=== PATIENT | male | born 1930 | race Caucasian/White ===

== ENCOUNTER 2018-12-08 07:05 | Emergency (ER) | payer MEDICARE, OTHER ==
[2018-12-08] MEDS ORDERED: Ciprofloxacin 500 MG Tab PO ONE (07:06)
[2018-12-08 07:12] VITALS: BP 151/47
--- NOTE | 2018-12-08 07:30 | EDM.PDOC ---
ED HPI GENERAL MEDICAL PROBLEM - General Chief Complaint: Genitourinary Problem Stated Complaint: "cant pee" Time Seen by Provider: 12/08/18 07:06 Source of Information: Reports: Patient History Limitations: Reports: No Limitations - History of Present Illness INITIAL COMMENTS - FREE TEXT/NARRATIVE: This patient is an 88 year old male that presents to the ER. Patient reports that last week on the he was seen for a kidney stone and had a ct scan done. Patient reports he passed a kidney stone then and for the next 3 days after the , he was fine and urinating without issue. Patient reports then 3 days ago began having blood in his urine. He reports the blood has increased in his urine. He reports then the past day it has been difficult to urinate and the blood has increased. Patient reports the last time he urinated was 6am, with blood, but it was difficult to urinate and he feels like his bladder has not been emptied. He reports an urge to urinate with bladder fullness. Onset Date: 12/02/18 Severity: Moderate Improves with: Reports: None Worsens with: Reports: None Associated Symptoms: Denies: Confusion, Chest Pain, Cough, cough w sputum, Diaphoresis, Fever/Chills, Headaches, Loss of Appetite, Malaise, Nausea/Vomiting , Rash, Seizure, Shortness of Breath, Syncope, Weakness Lower Bladder Pain Score (Numeric/FACES): 5 - Related Data Allergies Allergy/AdvReac Type Severity Reaction Status Date / Time No Known Allergies Allergy Verified 08/30/16 11:20 Home Meds: Home Meds Aspirin [Ecotrin] 81 mg PO DAILY 08/30/16 [History] Losartan Potassium 50 mg PO DAILY 08/30/16 [History] Metoprolol Tartrate 12.5 mg PO BID 08/30/16 [History] Multivitamin [Multivitamins] 1 each PO DAILY 08/30/16 [History] Simvastatin [Zocor] 40 mg PO ASDIRECTED 08/30/16 [History] Past Medical History Cardiovascular History: Reports: High Cholesterol, Hypertension Genitourinary History: Reports: Renal Calculus Social & Family History - Family History Family Medical History: Noncontributory - Tobacco Use Smoking Status *Q: Current Every Day Smoker Years of Tobacco use: 20 Packs/Tins Daily: 0.5 - Caffeine Use Caffeine Use: Reports: Coffee - Recreational Drug Use Recreational Drug Use: No ED ROS GENERAL - Review of Systems Review Of Systems: See Below Constitutional: Reports: No Symptoms. Denies: Fever HEENT: Reports: No Symptoms Respiratory: Reports: No Symptoms Cardiovascular: Reports: No Symptoms Endocrine: Reports: No Symptoms GI/Abdominal: Reports: No Symptoms. Denies: Abdominal Pain, Nausea, Vomiting : Reports: Hematuria, Urgency, Urinary Retention. Denies: Discharge, Dysuria , Flank Pain, Frequency, Incontinence, Pain Musculoskeletal: Reports: No Symptoms Skin: Reports: No Symptoms Neurological: Reports: No Symptoms Psychiatric: Reports: No Symptoms Hematologic/Lymphatic: Reports: No Symptoms Immunologic: Reports: No Symptoms ED EXAM, RENAL/ - Physical Exam Exam: See Below Exam Limited By: No Limitations General Appearance: Alert, WD/WN, No Apparent Distress Eye Exam: Bilateral Eye: Normal Inspection, PERRL Ears: Normal External Exam, Normal Canal, Hearing Grossly Normal, Normal TMs Nose: Normal Inspection, Normal Mucosa, No Blood Throat/Mouth: Normal Inspection, Normal Lips, Normal Teeth, Normal Gums, Normal Oropharynx, Normal Voice, No Airway Compromise Head: Atraumatic, Normocephalic Neck: Normal Inspection, Supple, Non-Tender, Full Range of Motion Respiratory/Chest: No Respiratory Distress, Lungs Clear, Normal Breath Sounds, No Accessory Muscle Use Cardiovascular: Normal Peripheral Pulses, Regular Rate, Rhythm, No Edema, No Gallop, No JVD, No Murmur, No Rub GI/Abdominal: Normal Bowel Sounds, Soft, Non-Tender, No Organomegaly, No Distention, No Mass, Pelvis Stable Back Exam: Normal Inspection, Full Range of Motion. No: CVA Tenderness (L), CVA Tenderness (R) Extremities: Normal Inspection, Normal Range of Motion, Non-Tender, No Pedal Edema, Normal Capillary Refill Neurological: Alert, Oriented, Normal Cognition, Normal Gait, No Motor/Sensory Deficits Psychiatric: Normal Affect, Normal Mood Skin Exam: Warm, Dry, Intact, Normal Color, No Rash Lymphatic: No Adenopathy Course - Vital Signs Last Recorded V/S: Last Vital Signs Temp 96.3 F 12/08/18 07:06 Pulse 56 L 12/08/18 07:06 Resp 20 12/08/18 07:06 BP 151/47 H 12/08/18 07:06 Pulse Ox 99 12/08/18 07:06 - Orders/Labs/Meds Orders: Active Orders 24 hr Category Date Time Status Insert Urinary Catheter [OM.PC] Q24H Care 12/08/18 07:15 Ordered Urinary Catheter Assessment [RC] ASDIRECTED Care 12/08/18 07:14 Active Ciprofloxacin [Take Home: Ciprofloxacin 500 MG, 2 Tab Med 12/08/18 08:50 Once Pack] 1 packet PO ONETIME ONE Labs: Laboratory Tests 12/08/18 12/08/18 12/08/18 Range/Units 07:24 07:24 07:58 WBC 7.3 (5.0-10.0) 10^3/uL RBC 4.06 L (4.50-6.00) 10^6/uL Hgb 13.5 L (14.0-18.0) g/dL Hct 39.4 L (40.0-54.0) % MCV 97.0 H (82.0-94.0) fL MCH 33.3 H (27.0-32.0) pg MCHC 34.3 (33.0-38.0) g/dL RDW Coeff of Aida 12.8 (11.0-15.0) % Plt Count 195 (150-400) 10^3/uL Neut % (Auto) 72.2 (35-85) % Lymph % (Auto) 12.5 (10-55) % [place] % (Auto) 7.1 (0-16) % Eos % (Auto) 7.4 H (0-5) % Baso % (Auto) 0.8 (0-3) % Neut # (Auto) 5.25 (1.80-7.00) 10^3/uL Lymph # (Auto) 0.91 L (1.00-4.80) 10^3/uL [place] # (Auto) 0.52 (0.00-0.80) 10^3/uL Eos # (Auto) 0.54 H (0.00-0.45) 10^3/uL Baso # (Auto) 0.06 10^3/uL Sodium 141 (136-145) mEq/L Potassium 4.6 (3.5-5.0) mEq/L Chloride 106 (98-106) mEq/L Carbon Dioxide 26 (21-32) mmol/L BUN 34 H (7-18) mg/dL Creatinine 1.5 H (0.7-1.3) mg/dL Est Cr Clr Drug Dosing 35.82 mL/min Estimated GFR (MDRD) 44 L (>=60) mL/min Glucose 131 H D (75-99) mg/dL Calcium 8.9 (8.4-10.1) mg/dL Total Bilirubin 0.4 (0.0-1.0) mg/dL AST 23 (15-37) U/L ALT 23 (12-78) U/L Alkaline Phosphatase 89 (46-116) U/L Total Protein 6.8 (6.4-8.2) g/dL Albumin 3.6 (3.4-5.0) g/dL Urine Color Brown (YELLOW) Urine Appearance Cloudy (CLEAR) Urine pH 5.0 (4.5-8.0) Ur Specific [place] 1.025 H (1.003-1.020) Urine Protein 100 H (NEGATIVE) mg/dL Urine Glucose (UA) Negative (NEGATIVE) mg/dL Urine Ketones Negative (NEGATIVE) mg/dL Urine Occult Blood Large H (NEGATIVE) Urine Nitrite Negative (NEGATIVE) Urine Bilirubin Negative (NEGATIVE) Urine Urobilinogen 0.2 (0.2-1.0) EU/dL Ur Leukocyte Esterase Trace H (NEGATIVE) Urine RBC Packed H (0-5) /HPF Urine WBC 0-5 (0-5) /HPF - Re-Assessments/Exams Free Text/Narrative Re-Assessment/Exam: 12/08/18 08:51 Called and spoe to urologist semiconductor packages leak tester at [facility]. He reports to leave figueredo in place, give abx. Have patient see urology that comes to [place] this month, see PCP in a couple days for f/u. He reports will take some time, but blood should clear up. Will discharge patient. Departure - Departure Time of Disposition: 08:48 Disposition: Home, Self-Care 01 Condition: Fair Clinical Impression: Hematuria syndrome, Retention of urine - Discharge Information *PRESCRIPTION DRUG MONITORING PROGRAM REVIEWED*: Not Applicable *COPY OF PRESCRIPTION DRUG MONITORING REPORT IN PATIENT JORGE ALBERTO: Not Applicable Instructions: Indwelling Urinary Catheter Care, Adult, Acute Urinary Retention , Male Referrals: Richy Hoffmann MD [Primary Care Provider] - Forms: ED Department Discharge Additional Instructions: See Dr. Hoffmann in 2 days for recheck See urologist that comes to [place] Increase fluids Leave figueredo in place, be sure to drain the urine from the bag STOP ASPIRIN Cipro 500mg 1 pill twice a day for 7 days #12 no refill: Given two pills to take home here - My Orders Last 24 Hours: My Active Orders 12/08/18 07:14 Urinary Catheter Assessment [RC] ASDIRECTED 12/08/18 07:15 Insert Urinary Catheter [OM.PC] Q24H 12/08/18 08:50 Ciprofloxacin [Take Home: Ciprofloxacin 500 MG, 2 Tab Pack] 1 packet PO ONETIME ONE - Assessment/Plan Last 24 Hours: My Active Orders 12/08/18 07:14 Urinary Catheter Assessment [RC] ASDIRECTED 12/08/18 07:15 Insert Urinary Catheter [OM.PC] Q24H 12/08/18 08:50 Ciprofloxacin [Take Home: Ciprofloxacin 500 MG, 2 Tab Pack] 1 packet PO ONETIME ONE Plan: PLEASE SEE RN NOTE FOR PFSH.
[2018-12-08] MEDS ORDERED: Take Home: Ciprofloxacin 500 MG Tab, 2 Tab Pack PO ONE (08:50)
== END 2018-12-08 09:15 | disposition home or self-care (01) ==
LOC: CC.ED 07:05
DX: R33.9 Retention of urine, unspecified (principal); R31.9 Hematuria, unspecified; I10 Essential (primary) hypertension; F17.210 Nicotine dependence, cigarettes, uncomplicated; Z79.82 Long term (current) use of aspirin; Z79.899 Other long term (current) drug therapy
CPT/HCPCS: 36415; 51702; 80053; 81001; 85025; 99283; A9270

== ENCOUNTER 2020-11-14 15:39 | Observation (INO) | payer MEDICARE, OTHER ==
[2020-11-14] MEDS ORDERED: Sodium Chloride 0.9% 10 ML Syringe FLUSH PRN (16:30)
[2020-11-14] MEDS ORDERED: Acetaminophen 325 MG Tab PO PRN (16:30)
[2020-11-14 17:08] LABS: CHLORIDE,CL 106 mEq/L (98-106); SODIUM,NA 144 mEq/L (136-145)
[2020-11-14] MEDS ORDERED: amLODIPine 10 MG Tab PO SCH ×2 (17:15→18:00)
[2020-11-14] MEDS: amLODIPine 10 MG Tab PO SCH (18:18)
[2020-11-14] MEDS: LOSARTAN POTASSIUM 50 MG PO SCH (18:38)
[2020-11-15] MEDS: amLODIPine 10 MG Tab PO SCH (07:33)
[2020-11-15] MEDS: LOSARTAN POTASSIUM 50 MG PO SCH (07:33)
[2020-11-15 07:35] VITALS: BP 165/46
[2020-11-15] MEDS ORDERED: Enoxaparin 40 MG/0.4 ML Syringe SUBCUT SCH (08:00)
[2020-11-15] MEDS ORDERED: Aspirin 81 MG Tab.EC PO SCH (08:00)
[2020-11-15 09:27] VITALS: PULSE 33
--- NOTE | 2020-11-15 10:12 | PCM.DCSUM1 ---
Discharge Summary - Hospital Course HPI Initial Comments: Don is an 89 yo male who was admitted to the hospital yesterday from the clinic by Dr. Hoffmann. Patient had quite elevated blood pressure and left lower leg pain. Patient had no known history of hypertension. Patient has known peripheral vascular disease. Through out the night patient did become bradycardic in the 30's. Upon ambulation he has been lightheaded. Diagnosis: Stroke: No - Discharge Data Discharge Date: 11/15/20 Discharge Disposition: DC/Tfer to Acute Hospital 02 Condition: Good - Referral to Home Health Primary Care Physician: Richy Hoffmann MD - Discharge Diagnosis/Problem(s) (1) Symptomatic bradycardia SNOMED Code(s): 93079903, 344030137 ICD Code: R00.1 - BRADYCARDIA, UNSPECIFIED Status: Acute Current Visit: Yes (2) Hypertensive urgency SNOMED Code(s): 142111839 ICD Code: I16.0 - HYPERTENSIVE URGENCY Status: Acute Current Visit: Yes - Patient Instructions Diet: NPO - Discharge Plan *PRESCRIPTION DRUG MONITORING PROGRAM REVIEWED*: No *COPY OF PRESCRIPTION DRUG MONITORING REPORT IN PATIENT JORGE ALBERTO: No Home Medications: Home Meds Aspirin [Ecotrin EC] 81 mg PO DAILY 08/30/16 [History] Losartan Potassium 25 mg PO DAILY 08/30/16 [History] Multivitamin [Multivitamins] 1 each PO DAILY 08/30/16 [History] Simvastatin [Zocor] 40 mg PO DAILY 08/30/16 [History] - Discharge Summary/Plan Comment DC Time >30 min.: Yes Discharge Summary/Plan Comment: Dr. Hoffmann did evaluate Don this morning. D/t symptomatic bradycardia we p roceeded to consult with Dr. Martinez, segmental wall installer. Dr. Martinez did feel evaluation for pacemaker was warranted. Dr. Hickman, hospitalist, at [facility] in [place] kindly accepted transfer. Don will be discharged and transferred via BLS transfer for cardiac monitoring to [facility] in [place]. Patient's blood pressure has been stable. At rest patient is asymptomatic. Patient did have breakfast this morning. Patient is to be NPO now. Risks and benefits of transfer discussed with Don. Risks of transfer included MVA, worsening bradycardia, further arrhythmia or . Benefits of transfer included cardiac evaluation and possible intervention. Risks of non- transfer included worsening cardiac arrhythmia's, , no specialty intervention. Benefits of non-transfer included staying close to home and familiar environment. Patient verbalized understanding and feels the benefits outweigh the risks. - General Info Date of Service: 11/15/20 Subjective Update: Don states he is feeling better this morning. States he only gets lightheaded when getting up but hasn't had any falls. States the discomfort in his left leg is a lot better as well today. Admits he has been up to the bathroom and did walk the halls this morning. Patient was given 5mg of Norvasc and 25mg of Losartan yesterday. Functional Status: Reports: Tolerating Diet - Review of Systems General: Reports: No Symptoms HEENT: Reports: No Symptoms Pulmonary: Reports: No Symptoms Cardiovascular: Reports: Lightheadedness. Denies: Chest Pain, Palpitations, Dyspnea on Exertion Gastrointestinal: Reports: No Symptoms Genitourinary: Reports: No Symptoms Musculoskeletal: Reports: No Symptoms. Denies: Leg Pain Skin: Reports: No Symptoms Neurological: Reports: No Symptoms - Patient Data Vitals - Most Recent: Last Vital Signs Temp 97.7 F 11/15/20 08:00 Pulse 33 L 11/15/20 08:00 Resp 16 11/15/20 08:00 BP 165/46 H 11/15/20 08:00 Pulse Ox 94 L 11/15/20 08:00 Weight - Most Recent: 150 lb Lab Results - Last 24 hrs: Laboratory Results - last 24 hr 11/14/20 11/14/20 11/14/20 Range/Units 16:45 16:45 20:29 WBC 7.6 (5.0-10.0) 10^3/uL RBC 4.01 L (4.50-6.00) 10^6/uL Hgb 13.0 L (14.0-18.0) g/dL Hct 38.6 L (40.0-54.0) % MCV 96.3 H (82.0-94.0) fL MCH 32.4 H (27.0-32.0) pg MCHC 33.7 (33.0-38.0) g/dL RDW Coeff of Aida 13.0 (11.0-15.0) % Plt Count 159 (150-400) 10^3/uL Neut % (Auto) 71.4 (35-85) % Lymph % (Auto) 11.3 (10-55) % [place] % (Auto) 10.4 (0-16) % Eos % (Auto) 6.4 H (0-5) % Baso % (Auto) 0.5 (0-3) % Neut # (Auto) 5.44 (1.80-7.00) 10^3/uL Lymph # (Auto) 0.86 L (1.00-4.80) 10^3/uL [place] # (Auto) 0.79 (0.00-0.80) 10^3/uL Eos # (Auto) 0.49 H (0.00-0.45) 10^3/uL Baso # (Auto) 0.04 10^3/uL Sodium 144 (136-145) mEq/L Potassium 4.2 (3.5-5.0) mEq/L Chloride 106 (98-106) mEq/L Carbon Dioxide 26 (21-32) mmol/L BUN 38 H D (7-18) mg/dL Creatinine 1.6 H (0.7-1.3) mg/dL Est Cr Clr Drug Dosing 30.12 mL/min Estimated GFR (MDRD) 41 L (>=60) mL/min Glucose 102 H (75-99) mg/dL Calcium 9.3 (8.4-10.1) mg/dL Total Bilirubin 0.6 (0.0-1.0) mg/dL AST 32 (15-37) U/L ALT 45 (12-78) U/L Alkaline Phosphatase 104 (46-116) U/L Troponin I < 0.017 (0.00-0.06) ng/mL Total Protein 7.3 (6.4-8.2) g/dL Albumin 3.7 (3.4-5.0) g/dL Urine Color Yellow (YELLOW) Urine Appearance Slightly cloudy (CLEAR) Urine pH 5.5 (4.5-8.0) Ur Specific [place] >= 1.030 H (1.003-1.020) Urine Protein >=300 H (NEGATIVE) mg/dL Urine Glucose (UA) Negative (NEGATIVE) mg/dL Urine Ketones Negative (NEGATIVE) mg/dL Urine Occult Blood Trace-intact H (NEGATIVE) Urine Nitrite Negative (NEGATIVE) Urine Bilirubin Negative (NEGATIVE) Urine Urobilinogen 0.2 (0.2-1.0) EU/dL Ur Leukocyte Esterase Negative (NEGATIVE) U Hyaline Cast (Auto) Rare (NOT SEEN) /LPF Urine RBC 0-5 (0-5) /HPF Urine WBC Not seen (0-5) /HPF Med Orders - Current: Current Medications Acetaminophen (Acetaminophen 325 Mg Tab) 650 mg PO Q4H PRN PRN Reason: Pain (Mild 1-3)/fever Last Admin: 11/14/20 21:34 Dose: 650 mg Documented by: Amlodipine Besylate (Amlodipine 10 Mg Tab) 5 mg PO DAILY [facility] Last Admin: 11/15/20 07:33 Dose: 5 mg Documented by: Aspirin (Aspirin 81 Mg Tab.Ec) 81 mg PO DAILY [facility] Last Admin: 11/15/20 07:33 Dose: 81 mg Documented by: Enoxaparin Sodium (Enoxaparin 40 Mg/0.4 Ml Syringe) 40 mg SUBCUT DAILY [facility] Last Admin: 11/15/20 07:32 Dose: 40 mg Documented by: Losartan Potassium 50 Mg Tablet Pt Own 0 mg PO DAILY [facility] Last Admin: 11/15/20 07:33 Dose: 25 mg Documented by: Simvastatin (Simvastatin 40 Mg Tab Pt Own) 40 mg PO BEDTIME [facility] Sodium Chloride (Sodium Chloride 0.9% 10 Ml Syringe) 10 ml FLUSH ASDIRECTED PRN PRN Reason: Keep Vein Open Discontinued Medications Amlodipine Besylate (Amlodipine 10 Mg Tab) 5 mg PO DAILY [facility] Last Admin: 11/14/20 19:29 Dose: Not Given Documented by: Amlodipine Besylate (Amlodipine 10 Mg Tab) 5 mg PO DAILY [facility] - Exam General: Reports: Alert, Oriented, Cooperative, No Acute Distress Lungs: Reports: Clear to Auscultation, Normal Respiratory Effort Cardiovascular: Reports: Regular Rhythm, No Murmurs, Bradycardia GI/Abdominal Exam: Normal Bowel Sounds, Soft, No Organomegaly, No Distention, No Mass Extremities: Normal Inspection, No Pedal Edema. No: Leg Pain Skin: Reports: Warm, Dry, Intact Neurological: Reports: No New Focal Deficit Psy/Mental Status: Reports: Alert, Normal Affect, Normal Mood
[2020-11-15] MEDS ORDERED: SIMVASTATIN 40 MG PO SCH (20:00)
== END 2020-11-15 10:39 ==
LOC: UNDOADMOB 15:39 → CC.MS 15:39
PROVIDERS: ADMIT Family Medicine; ATTEND Family Medicine
DX: I16.0 Hypertensive urgency (principal); R00.1 Bradycardia, unspecified; E78.5 Hyperlipidemia, unspecified; I10 Essential (primary) hypertension; I73.9 Peripheral vascular disease, unspecified; Z79.82 Long term (current) use of aspirin; Z87.891 Personal history of nicotine dependence
CPT/HCPCS: 36415; 70450; 71046; 80053; 81001; 84484; 85025; 93005; 96372; A9270-GY; G0378; J1650

== ENCOUNTER 2020-12-28 12:11 | Inpatient (IN) | payer MEDICARE, OTHER ==
[2020-12-28] MEDS ORDERED: Polyethylene Glycol 3350 Powder 17 GM Packet PO PRN (15:09)
[2020-12-28] MEDS ORDERED: Acetaminophen 325 MG Tab PO PRN (15:09)
[2020-12-28] MEDS ORDERED: Melatonin 3 MG Tab PO PRN (15:09)
[2020-12-28] MEDS ORDERED: Ondansetron 4 MG Tab.DIS PO PRN (15:09)
[2020-12-28] MEDS ORDERED: Acetaminophen 500 MG Tab PO PRN (15:19)
[2020-12-28] MEDS: ceFAZolin 1 GM Vial IVPUSH SCH (16:59)
[2020-12-29] MEDS: ceFAZolin 1 GM Vial IVPUSH SCH ×4 (00:14→23:47)
[2020-12-29] MEDS: Multivitamin Tab PO SCH (07:50)
[2020-12-29] MEDS: Aspirin 81 MG Tab.EC PO SCH (07:50)
[2020-12-29] MEDS: Simvastatin 40 MG Tab PO SCH (07:50)
[2020-12-29] MEDS: Losartan 100 MG Tab PO SCH (07:51)
[2020-12-29] MEDS: amLODIPine 2.5 MG Tab PO SCH (07:52)
[2020-12-29] MEDS: Nicotine 7 MG/24 Hr Patch TRDERM SCH (07:54)
[2020-12-29] MEDS ORDERED: ceFAZolin 1 GM Vial ONE (08:06)
--- NOTE | 2020-12-29 13:12 | HP ---
CHIEF COMPLAINT: Swing bed admission. 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 He had been doing fine until he started noticing drainage. He ultimately had to have the pacemaker removed at [facility] and reinserted in his right chest. He does have an abscess and a wound in his left chest and is requiring VAC treatment with long-term antibiotics at this point. He was sent for swing bed for such. PAST MEDICAL HISTORY: Includes a history of hypertension, hyperlipidemia, and a recent heart block requiring pacemaker placement. He has a known history of peripheral vascular disease and continues to smoke. He has elected not to have surgical treatment of his claudication and seems to be getting by adequately at this point. PAST SURGICAL HISTORY: Includes a pacer placement. ALLERGIES: NONE. CURRENT MEDICATIONS: Norvasc 5 mg daily, aspirin 81 mg daily, Ancef 2 g every 8 hours IV, Cozaar 100 mg daily, melatonin 3 mg at bedtime, minocycline 100 mg b.i.d., multivitamin 1 daily, Zocor 40 mg daily. SOCIAL HISTORY: The patient is . His suffers from advanced dementia and has just been placed in a skilled nursing. He continues to be a smoker. REVIEW OF SYSTEMS: Unremarkable. PHYSICAL EXAMINATION: GENERAL: The patient is pleasant, alert, and cooperative. He appears in no distress. He is very jovial and easy to speak with. HEENT: Grossly benign. NECK: Supple. No adenopathy. His veins are flat. LUNGS: Lung sounds appear to be clear. CARDIAC: Cardiac tones are regular at this time. CHEST: Pacer in the right upper chest is bandaged, but there is according to staff no erythema. He has a VAC placement in his left upper chest and a central line placed in mid sternum region. ABDOMEN: Soft and nontender. Bowel sounds are noted throughout. EXTREMITIES: No peripheral edema seen. Pulses are diminished in each foot, but palpable. SKIN: No skin lesions are seen. ASSESSMENT: 1. SWING BED PLACEMENT. 2. INFECTED PACER SITE WITH NEED FOR LONG-TERM ANTIBIOTICS AND VAC TREATMENT. 3. HYPERTENSION. 4. HYPERLIPIDEMIA. 5. NICOTINE ADDICTION. 6. PERIPHERAL VASCULAR DISEASE. PLAN: Orders have been put in by Sherine. We will put him on DVT prophylaxis. Otherwise, orders are agreed with. PARIS/DARWIN /[id number]
[2020-12-29] MEDS: Enoxaparin 40 MG/0.4 ML Syringe SUBCUT SCH (19:17)
[2020-12-30] MEDS: ceFAZolin 1 GM Vial IVPUSH SCH ×3 (07:27→23:55)
[2020-12-30] MEDS: Aspirin 81 MG Tab.EC PO SCH (07:28)
[2020-12-30] MEDS: amLODIPine 2.5 MG Tab PO SCH (07:28)
[2020-12-30] MEDS: Simvastatin 40 MG Tab PO SCH (07:28)
[2020-12-30] MEDS: Multivitamin Tab PO SCH (07:29)
[2020-12-30] MEDS: Losartan 100 MG Tab PO SCH (07:29)
[2020-12-30] MEDS: Nicotine 7 MG/24 Hr Patch TRDERM SCH (07:51)
[2020-12-30] MEDS: Enoxaparin 40 MG/0.4 ML Syringe SUBCUT SCH (19:42)
[2020-12-31] MEDS: Multivitamin Tab PO SCH (08:01)
[2020-12-31] MEDS: amLODIPine 2.5 MG Tab PO SCH (08:01)
[2020-12-31] MEDS: Aspirin 81 MG Tab.EC PO SCH (08:02)
[2020-12-31] MEDS: Losartan 100 MG Tab PO SCH (08:04)
[2020-12-31] MEDS: Simvastatin 40 MG Tab PO SCH (08:05)
[2020-12-31] MEDS: ceFAZolin 1 GM Vial IVPUSH SCH ×2 (08:05→16:09)
[2020-12-31] MEDS: Enoxaparin 40 MG/0.4 ML Syringe SUBCUT SCH (19:54)
[2021-01-01] MEDS: ceFAZolin 1 GM Vial IVPUSH SCH ×3 (00:01→16:46)
[2021-01-01] MEDS: Aspirin 81 MG Tab.EC PO SCH (07:34)
[2021-01-01] MEDS: Losartan 100 MG Tab PO SCH (07:35)
[2021-01-01] MEDS: Multivitamin Tab PO SCH (07:35)
[2021-01-01] MEDS: amLODIPine 2.5 MG Tab PO SCH (07:36)
[2021-01-01] MEDS: Simvastatin 40 MG Tab PO SCH (07:37)
[2021-01-01] MEDS: Enoxaparin 40 MG/0.4 ML Syringe SUBCUT SCH (19:59)
[2021-01-02] MEDS: ceFAZolin 1 GM Vial IVPUSH SCH ×3 (00:13→16:16)
[2021-01-02] MEDS: Aspirin 81 MG Tab.EC PO SCH (07:59)
[2021-01-02] MEDS: Simvastatin 40 MG Tab PO SCH (07:59)
[2021-01-02] MEDS: Multivitamin Tab PO SCH (07:59)
[2021-01-02] MEDS: amLODIPine 2.5 MG Tab PO SCH (07:59)
[2021-01-02] MEDS: Losartan 100 MG Tab PO SCH (07:59)
[2021-01-02] MEDS: Enoxaparin 40 MG/0.4 ML Syringe SUBCUT SCH (19:51)
[2021-01-03] MEDS: ceFAZolin 1 GM Vial IVPUSH SCH ×3 (00:03→16:35)
[2021-01-03] MEDS: amLODIPine 2.5 MG Tab PO SCH (07:58)
[2021-01-03] MEDS: Simvastatin 40 MG Tab PO SCH (07:59)
[2021-01-03] MEDS: Multivitamin Tab PO SCH (07:59)
[2021-01-03] MEDS: Losartan 100 MG Tab PO SCH (07:59)
[2021-01-03] MEDS: Aspirin 81 MG Tab.EC PO SCH (07:59)
[2021-01-03] MEDS: Enoxaparin 40 MG/0.4 ML Syringe SUBCUT SCH (19:21)
[2021-01-04] MEDS: ceFAZolin 1 GM Vial IVPUSH SCH ×3 (00:11→16:19)
[2021-01-04] MEDS ORDERED: amLODIPine 10 MG Tab PO SCH ×2 (08:00→20:00)
[2021-01-04] MEDS ORDERED: amLODIPine 2.5 MG Tab PO SCH (08:00)
[2021-01-04] MEDS: Simvastatin 40 MG Tab PO SCH (08:06)
[2021-01-04] MEDS: Losartan 100 MG Tab PO SCH (08:06)
[2021-01-04] MEDS: Multivitamin Tab PO SCH (08:07)
[2021-01-04] MEDS: Aspirin 81 MG Tab.EC PO SCH (08:07)
[2021-01-04] MEDS: Enoxaparin 40 MG/0.4 ML Syringe SUBCUT SCH (20:31)
[2021-01-04] MEDS: amLODIPine 10 MG Tab PO SCH (20:31)
[2021-01-05] MEDS: ceFAZolin 1 GM Vial IVPUSH SCH ×4 (00:04→23:53)
[2021-01-05] MEDS: Simvastatin 40 MG Tab PO SCH (07:20)
[2021-01-05] MEDS: Multivitamin Tab PO SCH (07:21)
[2021-01-05] MEDS: Aspirin 81 MG Tab.EC PO SCH (07:21)
[2021-01-05] MEDS: Losartan 100 MG Tab PO SCH (07:21)
[2021-01-05] MEDS: amLODIPine 10 MG Tab PO SCH (19:39)
[2021-01-05] MEDS: Enoxaparin 40 MG/0.4 ML Syringe SUBCUT SCH (19:39)
[2021-01-06] MEDS: Multivitamin Tab PO SCH (07:58)
[2021-01-06] MEDS: Aspirin 81 MG Tab.EC PO SCH (07:58)
[2021-01-06] MEDS: Simvastatin 40 MG Tab PO SCH (07:58)
[2021-01-06] MEDS: Losartan 100 MG Tab PO SCH (07:58)
[2021-01-06] MEDS: ceFAZolin 1 GM Vial IVPUSH SCH ×2 (08:00→16:21)
[2021-01-06] MEDS: amLODIPine 10 MG Tab PO SCH (19:18)
[2021-01-06] MEDS: Enoxaparin 40 MG/0.4 ML Syringe SUBCUT SCH (19:18)
[2021-01-07] MEDS: ceFAZolin 1 GM Vial IVPUSH SCH ×3 (00:08→15:58)
[2021-01-07] MEDS: Simvastatin 40 MG Tab PO SCH (07:34)
[2021-01-07] MEDS: Aspirin 81 MG Tab.EC PO SCH (07:34)
[2021-01-07] MEDS: Multivitamin Tab PO SCH (07:34)
[2021-01-07] MEDS: Losartan 100 MG Tab PO SCH (07:35)
[2021-01-07] MEDS: Enoxaparin 40 MG/0.4 ML Syringe SUBCUT SCH (19:27)
[2021-01-07] MEDS: amLODIPine 10 MG Tab PO SCH (19:28)
[2021-01-08] MEDS: ceFAZolin 1 GM Vial IVPUSH SCH ×4 (08:03→23:56)
[2021-01-08] MEDS: Losartan 100 MG Tab PO SCH (08:05)
[2021-01-08] MEDS: Multivitamin Tab PO SCH (08:05)
[2021-01-08] MEDS: Aspirin 81 MG Tab.EC PO SCH (08:05)
[2021-01-08] MEDS: Simvastatin 40 MG Tab PO SCH (08:05)
[2021-01-08] MEDS: amLODIPine 10 MG Tab PO SCH (19:31)
[2021-01-08] MEDS: Enoxaparin 40 MG/0.4 ML Syringe SUBCUT SCH (19:31)
[2021-01-09] MEDS: ceFAZolin 1 GM Vial IVPUSH SCH ×3 (07:39→23:47)
[2021-01-09] MEDS: Aspirin 81 MG Tab.EC PO SCH (07:40)
[2021-01-09] MEDS: Losartan 100 MG Tab PO SCH (07:40)
[2021-01-09] MEDS: Multivitamin Tab PO SCH (07:41)
[2021-01-09] MEDS: Simvastatin 40 MG Tab PO SCH (07:41)
[2021-01-09] MEDS: Enoxaparin 40 MG/0.4 ML Syringe SUBCUT SCH (19:25)
[2021-01-09] MEDS: amLODIPine 10 MG Tab PO SCH (19:25)
[2021-01-10] MEDS: ceFAZolin 1 GM Vial IVPUSH SCH ×2 (07:51→16:39)
[2021-01-10] MEDS: Losartan 100 MG Tab PO SCH (07:52)
[2021-01-10] MEDS: Simvastatin 40 MG Tab PO SCH (07:52)
[2021-01-10] MEDS: Aspirin 81 MG Tab.EC PO SCH (07:52)
[2021-01-10] MEDS: Multivitamin Tab PO SCH (07:52)
[2021-01-10] MEDS: Enoxaparin 40 MG/0.4 ML Syringe SUBCUT SCH (20:00)
[2021-01-10] MEDS: amLODIPine 10 MG Tab PO SCH (20:00)
[2021-01-11] MEDS: ceFAZolin 1 GM Vial IVPUSH SCH ×4 (00:01→23:48)
[2021-01-11] MEDS: Losartan 100 MG Tab PO SCH (07:26)
[2021-01-11] MEDS: Simvastatin 40 MG Tab PO SCH (07:26)
[2021-01-11] MEDS: Multivitamin Tab PO SCH (07:27)
[2021-01-11] MEDS: Aspirin 81 MG Tab.EC PO SCH (07:27)
[2021-01-11] MEDS: Bacitracin Oint 28.35 GM Tube TOP SCH (19:55)
[2021-01-11] MEDS: Enoxaparin 40 MG/0.4 ML Syringe SUBCUT SCH (19:56)
[2021-01-11] MEDS: amLODIPine 10 MG Tab PO SCH (19:56)
[2021-01-12] MEDS: Losartan 100 MG Tab PO SCH (07:36)
[2021-01-12] MEDS: Multivitamin Tab PO SCH (07:36)
[2021-01-12] MEDS: Aspirin 81 MG Tab.EC PO SCH (07:37)
[2021-01-12] MEDS: Simvastatin 40 MG Tab PO SCH (07:37)
[2021-01-12] MEDS: ceFAZolin 1 GM Vial IVPUSH SCH ×2 (07:40→15:43)
[2021-01-12] MEDS: Bacitracin Oint 28.35 GM Tube TOP SCH ×2 (07:50→19:23)
--- NOTE | 2021-01-12 13:47 | PCM.SN.2 ---
- Free Text/Narrative Note: Don is an 89 yo male who has been in swing bed status s/p pacemaker infection site. New one was placed on the right upper chest with old in left upper chest. He is currently on IV Ancef 2 gm q8hrs. Patient is due for 14 day recertification. Continue IV antibiotics through the 01/19/2021. Wound vac removed yesterday.
[2021-01-12] MEDS: amLODIPine 10 MG Tab PO SCH (19:22)
[2021-01-12] MEDS: Enoxaparin 40 MG/0.4 ML Syringe SUBCUT SCH (19:23)
[2021-01-13] MEDS: ceFAZolin 1 GM Vial IVPUSH SCH ×4 (00:06→23:46)
[2021-01-13] MEDS: Multivitamin Tab PO SCH (07:26)
[2021-01-13] MEDS: Losartan 100 MG Tab PO SCH (07:26)
[2021-01-13] MEDS: Simvastatin 40 MG Tab PO SCH (07:26)
[2021-01-13] MEDS: Aspirin 81 MG Tab.EC PO SCH (08:00)
[2021-01-13] MEDS: Bacitracin Oint 28.35 GM Tube TOP SCH ×2 (08:00→19:30)
[2021-01-13] MEDS: Enoxaparin 40 MG/0.4 ML Syringe SUBCUT SCH (19:28)
[2021-01-13] MEDS: amLODIPine 10 MG Tab PO SCH (19:29)
[2021-01-14] MEDS: ceFAZolin 1 GM Vial IVPUSH SCH ×3 (07:45→23:25)
[2021-01-14] MEDS: Bacitracin Oint 28.35 GM Tube TOP SCH ×2 (07:46→19:47)
[2021-01-14] MEDS: Simvastatin 40 MG Tab PO SCH (07:46)
[2021-01-14] MEDS: Multivitamin Tab PO SCH (07:46)
[2021-01-14] MEDS: Aspirin 81 MG Tab.EC PO SCH (07:46)
[2021-01-14] MEDS: Losartan 100 MG Tab PO SCH (07:47)
[2021-01-14] MEDS: Enoxaparin 40 MG/0.4 ML Syringe SUBCUT SCH (19:48)
[2021-01-14] MEDS: amLODIPine 10 MG Tab PO SCH (19:48)
[2021-01-15] MEDS: ceFAZolin 1 GM Vial IVPUSH SCH ×2 (07:38→15:25)
[2021-01-15] MEDS: Multivitamin Tab PO SCH (07:38)
[2021-01-15] MEDS: Simvastatin 40 MG Tab PO SCH (07:38)
[2021-01-15] MEDS: Bacitracin Oint 28.35 GM Tube TOP SCH ×2 (07:38→19:41)
[2021-01-15] MEDS: Aspirin 81 MG Tab.EC PO SCH (07:38)
[2021-01-15] MEDS: Losartan 100 MG Tab PO SCH (07:39)
[2021-01-15] MEDS: Enoxaparin 40 MG/0.4 ML Syringe SUBCUT SCH (19:41)
[2021-01-15] MEDS: amLODIPine 10 MG Tab PO SCH (19:41)
[2021-01-16] MEDS: ceFAZolin 1 GM Vial IVPUSH SCH ×3 (00:59→16:49)
[2021-01-16] MEDS: Bacitracin Oint 28.35 GM Tube TOP SCH ×2 (08:06→20:01)
[2021-01-16] MEDS: Multivitamin Tab PO SCH (08:07)
[2021-01-16] MEDS: Losartan 100 MG Tab PO SCH (08:07)
[2021-01-16] MEDS: Aspirin 81 MG Tab.EC PO SCH (08:07)
[2021-01-16] MEDS: Simvastatin 40 MG Tab PO SCH (08:07)
[2021-01-16] MEDS: amLODIPine 10 MG Tab PO SCH (20:00)
[2021-01-16] MEDS: Enoxaparin 40 MG/0.4 ML Syringe SUBCUT SCH (20:00)
[2021-01-17] MEDS: ceFAZolin 1 GM Vial IVPUSH SCH ×4 (00:25→23:56)
[2021-01-17] MEDS: Losartan 100 MG Tab PO SCH (07:49)
[2021-01-17] MEDS: Multivitamin Tab PO SCH (07:49)
[2021-01-17] MEDS: Aspirin 81 MG Tab.EC PO SCH (07:49)
[2021-01-17] MEDS: Bacitracin Oint 28.35 GM Tube TOP SCH ×2 (07:49→19:18)
[2021-01-17] MEDS: Simvastatin 40 MG Tab PO SCH (07:49)
[2021-01-17] MEDS: amLODIPine 10 MG Tab PO SCH (19:19)
[2021-01-17] MEDS: Enoxaparin 40 MG/0.4 ML Syringe SUBCUT SCH (19:19)
[2021-01-18] MEDS: ceFAZolin 1 GM Vial IVPUSH SCH ×2 (07:26→20:39)
[2021-01-18] MEDS: Simvastatin 40 MG Tab PO SCH (07:26)
[2021-01-18] MEDS: Losartan 100 MG Tab PO SCH (07:26)
[2021-01-18] MEDS: Aspirin 81 MG Tab.EC PO SCH (07:26)
[2021-01-18] MEDS: Multivitamin Tab PO SCH (07:26)
[2021-01-18] MEDS: Bacitracin Oint 28.35 GM Tube TOP SCH ×2 (07:26→19:53)
[2021-01-18] MEDS: amLODIPine 10 MG Tab PO SCH (19:54)
[2021-01-18] MEDS: Enoxaparin 40 MG/0.4 ML Syringe SUBCUT SCH (19:54)
[2021-01-19] MEDS: Losartan 100 MG Tab PO SCH (07:45)
[2021-01-19] MEDS: Aspirin 81 MG Tab.EC PO SCH (07:45)
[2021-01-19] MEDS: Simvastatin 40 MG Tab PO SCH (07:45)
[2021-01-19] MEDS: Multivitamin Tab PO SCH (07:45)
[2021-01-19] MEDS: Bacitracin Oint 28.35 GM Tube TOP SCH (07:46)
[2021-01-19 07:47] VITALS: BP 131/83
[2021-01-19 07:50] VITALS: PULSE 96
--- NOTE | 2021-01-19 11:01 | DISCH ---
ADMISSION DIAGNOSES: 1. Infected pacer site with need for back treatment. 2. Hypertension. 3. Hyperlipidemia. 4. Nicotine addiction. 5. Peripheral vascular disease. DISCHARGE DIAGNOSIS: 1. INFECTED PACER SITE WITH NEED FOR BACK TREATMENT. 2. HYPERTENSION. 3. HYPERLIPIDEMIA. 4. NICOTINE ADDICTION. 5. PERIPHERAL VASCULAR DISEASE. HISTORY: The patient is an elderly gentleman who had a previous pacemaker insertion in his left upper chest for a complete heart block. He started having erythema and drainage from it and required removal and re-insertion on his right side. He developed an abscess and required antibiotics and VAC treatment. He came to swing bed for such. SWING BED COURSE: The patient was fine while here. He never spiked any temps. His vitals were stable. He was essentially asymptomatic and clinically did wonderful. He had not had any issues with the VAC and there was no further abscess or open sores. He has been on DVT prophylaxis during his stay, has been up and ambulating, eating a regular diet, and having no complaints of pain. He will be discharged home with instructions for followup in 1 week in my office. He has followup with Cardiology in February. COMPLICATIONS: During his stay were none. CONSULTATIONS: None. DISPOSITION: Discharged home via self-care. AYAKA /[id number]
== END 2021-01-19 11:10 | disposition home or self-care (01) | DRG 950 ==
LOC: CC.MS 14:37
PROVIDERS: ADMIT Physician Assistant Medical; ATTEND Family Medicine
DX: T82.7XXD Infection and inflammatory reaction due to other cardiac and vascular devices, implants and grafts, subsequent encounter (principal); I10 Essential (primary) hypertension; E78.5 Hyperlipidemia, unspecified; I73.9 Peripheral vascular disease, unspecified; F17.200 Nicotine dependence, unspecified, uncomplicated; Z79.82 Long term (current) use of aspirin; Z79.899 Other long term (current) drug therapy
CPT/HCPCS: 97110-GP; 97161-GP; 97605-GP; A9270-GY; J0690; J1642; J1650